=== PATIENT | male | born 1965 | race Caucasian/White ===

== ENCOUNTER → 2020-11-28 | Outpatient (CLI) | payer MEDICARE ==
[~2020-11-28] MED LIST: BAYER CHEWABLE81 MG PO; ENSURE LIQUID237 ML PO; KEPPRA500 MG PO; NORVASC 5 MG TAB5 MG PO; PROTONIX40 MG PO; THERAGRAN TAB1 EA PO; ZESTRIL/PRINIVI10 MG PO
== END ==
LOC: EXRD 14:25
DX: M79.605 Pain in left leg (principal); M79.604 Pain in right leg; R22.41 Localized swelling, mass and lump, right lower limb
CPT/HCPCS: 93925; 93970

== ENCOUNTER → 2021-08-17 | Outpatient (CLI) | payer MEDICARE | LOC: CT 14:20 | DX: I70.213 Atherosclerosis of native arteries of extremities with intermittent claudication, bilateral legs (principal); R06.02 Shortness of breath | CPT/HCPCS: 36415; 75635; 82565; 84520; Q9967 ==

== ENCOUNTER → 2021-11-30 | Outpatient (CLI) | payer MEDICARE | LOC: HEART 5 07:30 | DX: Z01.810 Encounter for preprocedural cardiovascular examination (principal); I70.219 Atherosclerosis of native arteries of extremities with intermittent claudication, unspecified extremity | CPT/HCPCS: 78452; A9502; J2785 ==